=== PATIENT | female | born 1945 | race African-American/Black ===

== ENCOUNTER 2017-11-23 15:03 | Emergency (ER) | payer MEDICAID, MEDICARE, OTHER ==
[~2017-11-23] VITALS: Ht 160 cm; Wt 12.2 kg
[2017-11-23] VITALS (8 sets, daily range): BP systolic 134–200; BP diastolic 78–107
[~2017-11-23 15:03] MED LIST: BENADRYL ALLERG25 M1 PO; CLINDAMYCIN HC150 MG ORAL; ROBITUSSIN DM5 ML GT
--- NOTE | 2017-11-23 15:22 | Emergency Room Report ---
History of Present Illness General Chief Complaint: Chest Pain Source: Patient Present Illness HPI Patient is a 72-year-old female who presented after increased chest discomfort. The patient ports having pain onset last night. She reports having recently flown from [place] to [place]. She reports having sharp pain which did not radiate. She reports being a smoker. She denies any fever. She states she's had nonproductive cough.Patient denies any leg pain or swelling. Allergies: Coded Allergies: PENICILLINS (Verified Allergy, Intermediate, 02/21/12) Patient History Past Medical History: see triage record Last Menstrual Period: na Reviewed Nursing Documentation: PMH: Agreed; PSxH: Agreed Nursing Documentation-PMH Past Medical History: No History, Except For Hx Hypertension: Yes Hx Diabetes: Yes Review of Systems All Other Systems: negative except mentioned in HPI Physical Exam Vital Signs Date Time Temp Pulse Resp B/P (MAP) Pulse Ox O2 Delivery O2 Flow Rate FiO2 11/23/17 15:12 98.3 86 18 169/87 98 Room Air 98.2 Sp02 EP Interpretation: reviewed, normal General Appearance: normal inspection, well appearing, no apparent distress, alert, GCS 15, Chronically Ill Head: atraumatic ENT: normal ENT inspection, hearing grossly normal, normal voice Neck: normal inspection, full range of motion, supple, no bony tend Respiratory: normal inspection, normal breath sounds, no respiratory distress, no retraction, no wheezing Cardiovascular #1: regular rate, rhythm, no edema Gastrointestinal: normal inspection, normal bowel sounds, non tender, soft, no guarding, no hernia Genitourinary: no CVA tenderness Musculoskeletal: normal inspection, back normal, normal range of motion Neurologic: normal inspection, alert, oriented x3, responsive, oil burner mechanic III-XII nml as tested, speech normal Psychiatric: normal inspection, judgement/insight normal, mood/affect normal Skin: normal inspection, normal color, no rash Medical Decision Making Diagnostic Impression: Primary Impression: Chest pain Additional Impression: ACS (acute coronary syndrome) ER Course Patient presented for chest pain. Differential diagnosis included but was not limited to acute coronary syndrome, pulmonary embolism, pneumonia, aortic dissection, shingles, pneumothorax, aortic dissection, esophageal rupture, pericarditis. Because of complexity of patient's case laboratory testing and imaging studies were ordered.EKG was noted to have some evidence of myocardial ischemia. The patient is given aspirin as well as breathing treatment. The patient was noted to have some improvement her symptoms. Initial troponin was noted be negative. The patient was discussed with Dr. Boni Mcdermott for transfer to [facility] for further evaluation and treatment. Labs Test 11/23/17 15:44 11/23/17 18:25 White Blood Count 6.3 K/UL (4.8-10.8) Red Blood Count 4.05 M/UL (4.20-5.40) Hemoglobin 12.9 G/DL (12.0-16.0) Hematocrit 36.2 % (37.0-47.0) Mean Corpuscular Volume 89 FL (80-99) Mean Corpuscular Hemoglobin 32.0 PG (27.0-31.0) Mean Corpuscular Hemoglobin Concent 35.7 G/DL (32.0-36.0) Red Cell Distribution Width 10.6 % (11.6-14.8) Platelet Count 150 K/UL (150-450) Mean Platelet Volume 8.5 FL (6.5-10.1) Neutrophils (%) (Auto) 67.9 % (45.0-75.0) Lymphocytes (%) (Auto) 24.6 % (20.0-45.0) Monocytes (%) (Auto) 4.6 % (1.0-10.0) Eosinophils (%) (Auto) 2.2 % (0.0-3.0) Basophils (%) (Auto) 0.8 % (0.0-2.0) Prothrombin Time 10.5 SEC (9.30-11.50) Prothromb Time International Ratio 1.0 (0.9-1.1) Activated Partial Thromboplast Time 24 SEC (23-33) D-Dimer 1.19 mg/L FEU (0.00-0.49) Sodium Level 137 MMOL/L (136-145) Potassium Level 4.4 MMOL/L (3.5-5.1) Chloride Level 101 MMOL/L (98-107) Carbon Dioxide Level 24 MMOL/L (21-32) Anion Gap 12 mmol/L (5-15) Blood Urea Nitrogen 18 mg/dL (7-18) Creatinine 1.0 MG/DL (0.55-1.30) Estimat Glomerular Filtration Rate mL/min (>60) Glucose Level 267 MG/DL (74-106) Calcium Level 9.6 MG/DL (8.5-10.1) Total Bilirubin 1.0 MG/DL (0.2-1.0) Aspartate Amino Transf (AST/SGOT) 27 U/L (15-37) Alanine Aminotransferase (ALT/SGPT) 25 U/L (12-78) Alkaline Phosphatase 126 U/L (46-116) Total Creatine Kinase 184 U/L (26-308) Creatine Kinase MB 1.0 NG/ML (0.0-3.6) Creatine Kinase MB Relative Index 0.5 Troponin I 0.000 ng/mL (0.000-0.056) Pro-B-Type Natriuretic Peptide 593 pg/mL (0-125) Total Protein 7.6 G/DL (6.4-8.2) Albumin 3.5 G/DL (3.4-5.0) Globulin 4.1 g/dL Albumin/Globulin Ratio 0.9 (1.0-2.7) Urine Color Yellow Urine Appearance Clear Urine pH 5 (4.5-8.0) Urine Specific [place] 1.010 (1.005-1.035) Urine Protein Negative (NEGATIVE) Urine Glucose (UA) Negative (NEGATIVE) Urine Ketones Negative (NEGATIVE) Urine Occult Blood Negative (NEGATIVE) Urine Nitrite Negative (NEGATIVE) Urine Bilirubin Negative (NEGATIVE) Urine Urobilinogen Normal MG/DL (0.0-1.0) Urine Leukocyte Esterase Negative (NEGATIVE) Urine Opiates Screen Negative (NEGATIVE) Urine Barbiturates Screen Negative (NEGATIVE) Phencyclidine (PCP) Screen Negative (NEGATIVE) Urine Amphetamines Screen Negative (NEGATIVE) Urine Benzodiazepines Screen Positive (NEGATIVE) Urine Cocaine Screen Negative (NEGATIVE) Urine Marijuana (THC) Screen Positive (NEGATIVE) EKG Diagnostic Results Rate: normal Rhythm: NSR ST Segments: other - inferior and lateral st depression Last Vital Signs Date Time Temp Pulse Resp B/P (MAP) Pulse Ox O2 Delivery O2 Flow Rate FiO2 11/23/17 15:12 98.3 86 18 169/87 98 Room Air 98.2 Status: improved Disposition: XFER SHT-TRM HOSP Condition: Serious Latrell Chau MD Nov 23, 2017 15:22
[2017-11-23] MEDS ORDERED: Aspirin Baby 81mg ORAL ONE (15:30)
[2017-11-23] MEDS ORDERED: METOPROLOL SUC100 MG ORAL (15:58)
[2017-11-23] MEDS ORDERED: LISINOPRIL40 MG ORAL (16:00)
[2017-11-23] MEDS ORDERED: METFORMIN HCL1000 M1 ORAL (16:00)
[2017-11-23] MEDS ORDERED: COSOPT EYE DROP10 M1 OP (16:00)
[2017-11-23] MEDS ORDERED: HYDROCHLOROTHIA25 MG ORAL (16:00)
[2017-11-23] MEDS ORDERED: ATORVASTATIN CA20 MG ORAL (16:00)
--- NOTE | 2017-11-23 16:03 | Diagnostic Imaging Report ---
Indication: Dyspnea Comparison: None A single view chest radiograph was obtained. Findings: Cardiomediastinal appearance is within normal limits for age. Pulmonary vascularity is appropriate. The diaphragmatic contour is smooth and costophrenic angles are sharp. No pleural effusions are identified. The bones are unremarkable. Impression: No acute findings
[2017-11-23] MEDS ORDERED: Albuterol/Ipratropium 3ml neb HHN ONE (16:15)
[2017-11-23 16:21] LABS: BASOPHILS % (AUTO) 0.8 % (0.0-2.0); EOSINOPHILS % (AUTO) 2.2 % (0.0-3.0); HEMATOCRIT 36.2 % (37.0-47.0); HEMOGLOBIN 12.9 G/DL (12.0-16.0); LYMPHOCYTES % (AUTO) 24.6 % (20.0-45.0); MEAN CORPUSCULAR VOLUME 89 FL (80-99); MONOCYTES % (AUTO) 4.6 % (1.0-10.0); NEUTROPHILS % (AUTO) 67.9 % (45.0-75.0); PLATELET COUNT 150 K/UL (150-450); RED BLOOD COUNT 4.05 M/UL (4.20-5.40); RED CELL DISTRIBUTION WIDTH 10.6 % (11.6-14.8); WHITE BLOOD COUNT 6.3 K/UL (4.8-10.8)
[2017-11-23 16:36] LABS: ANION GAP 12 mmol/L (5-15); BLOOD UREA NITROGEN 18 mg/dL (7-18); CALCIUM 9.6 MG/DL (8.5-10.1); CARBON DIOXIDE 24 MMOL/L (21-32); CHLORIDE 101 MMOL/L (98-107); POTASSIUM 4.4 MMOL/L (3.5-5.1); SODIUM 137 MMOL/L (136-145)
[2017-11-23 16:52] LABS: ALANINE AMINOTRANSFERASE 25 U/L (12-78); ALBUMIN 3.5 G/DL (3.4-5.0); ALBUMIN/GLOBULIN RATIO 0.9 (1.0-2.7); ALKALINE PHOSPHATASE 126 U/L (46-116); ASPARTATE AMINO TRANSFERASE 27 U/L (15-37); CREATINE KINASE 184 U/L (26-308)
[2017-11-23] MEDS: Nitroglycerin Subl 0.4mg tab SL PRN ×3 (17:19→17:54)
[2017-11-23] MEDS ORDERED: COSOPT EYE DROP10 M1 BOTH EYES (17:37)
[2017-11-23] MEDS ORDERED: TRAVATAN Z5 ML BOTH EYES (17:37)
[2017-11-23] MEDS ORDERED: BRIMONIDINE TART5 ML BOTH EYES (17:37)
[2017-11-23] MEDS ORDERED: PEPTO-BISMOL262 M1 PO (17:40)
[2017-11-23 18:47] LABS: APPEARANCE,URINE CLEAR; BILIRUBIN, URINE NEGATIVE (NEGATIVE); GLUCOSE, URINE (UA) NEGATIVE (NEGATIVE); KETONES,URINE NEGATIVE (NEGATIVE); LEUKOCYTE ESTERASE ,URINE NEGATIVE (NEGATIVE); NITRITE,URINE NEGATIVE (NEGATIVE); PH,URINE 5 (4.5-8.0); PROTEIN,URINE NEGATIVE (NEGATIVE); UROBILINOGEN,URINE NORMAL MG/DL (0.0-1.0)
[2017-11-23 18:53] LABS: COLOR,URINE YELLOW
[2017-11-23] MEDS ORDERED: Enalaprilat 2.5mg/2ml Inj IV ONE (22:15)
== END 2017-11-23 23:11 | disposition short-term general hospital (02) ==
LOC: EMR 16:20
DX: I24.9 Acute ischemic heart disease, unspecified (principal); E11.9 Type 2 diabetes mellitus without complications; I10 Essential (primary) hypertension; Z88.0 Allergy status to penicillin
CPT/HCPCS: 36415; 71045; 80053; 80307; 81003; 82550; 82553; 83880; 84484; 85025; 85379; 85610; 85730; 93005; 94640; 94664; 96374; 96375; 99284; J1940; J7620

== ENCOUNTER 2018-08-11 21:38 | Emergency (ER) | payer MEDICAID, MEDICARE ==
[~2018-08-11] VITALS: Ht 160 cm; Wt 66.7 kg
[~2018-08-11 21:38] MED LIST changes: +ATORVASTATIN CA20 MG ORAL; +BRIMONIDINE TART5 ML BOTH EYES; +COSOPT EYE DROP10 M1 BOTH EYES; +COSOPT EYE DROP10 M1 OP; +HYDROCHLOROTHIA25 MG ORAL; +LISINOPRIL40 MG ORAL; +METFORMIN HCL1000 M1 ORAL; +METOPROLOL SUC100 MG ORAL; +PEPTO-BISMOL262 M1 PO; +TRAVATAN Z5 ML BOTH EYES
[2018-08-11 22:40] VITALS: BP 157/78
--- NOTE | 2018-08-11 22:40 | NUR ---
ED Nurse Note: pt walked in c/o high blood sugar, pt stated BS 380 and she took it 2 hours ago. pt bs 321 on triage. pt neuro assessment is pt is alert and oriented times 4, pupiles are round and reactive to light and accomodating, pt is able to walk with steady gait. pt cardiact assessment is within normal limits with S1 and S2 noted, pulse and sensation noted noted on all 4 extremiteies, pt vital signs are steady. pt resp assessment is within normal limits, pt breath sounds are clear on all 4 quadrants, no wheezing/ obstruction noted in airways, pt O2 sat is 98%. pt family memeber by bed side.
[2018-08-11 23:38] LABS: APPEARANCE,URINE CLEAR; BILIRUBIN, URINE NEGATIVE (NEGATIVE); COLOR,URINE PALE YELLOW; GLUCOSE, URINE (UA) 2+ (NEGATIVE); KETONES,URINE NEGATIVE (NEGATIVE); LEUKOCYTE ESTERASE ,URINE 2+ (NEGATIVE); NITRITE,URINE NEGATIVE (NEGATIVE); PH,URINE 5 (4.5-8.0); PROTEIN,URINE NEGATIVE (NEGATIVE); UROBILINOGEN,URINE NORMAL MG/DL (0.0-1.0)
[2018-08-11 23:40] LABS: BASOPHILS % (AUTO) 0.6 % (0.0-2.0); EOSINOPHILS % (AUTO) 5.4 % (0.0-3.0); HEMOGLOBIN 12.6 G/DL (12.0-16.0); LYMPHOCYTES % (AUTO) 38.1 % (20.0-45.0); MEAN CORPUSCULAR VOLUME 92 FL (80-99); NEUTROPHILS % (AUTO) 46.9 % (45.0-75.0); PLATELET COUNT 195 K/UL (150-450); RED BLOOD COUNT 3.91 M/UL (4.20-5.40); RED CELL DISTRIBUTION WIDTH 11.3 % (11.6-14.8); WHITE BLOOD COUNT 6.9 K/UL (4.8-10.8)
[2018-08-11 23:48] LABS: ANION GAP 9 mmol/L (5-15); BLOOD UREA NITROGEN 22 mg/dL (7-18); CALCIUM 9.6 MG/DL (8.5-10.1); CARBON DIOXIDE 27 MMOL/L (21-32); CHLORIDE 102 MMOL/L (98-107); CREATININE 1.3 MG/DL (0.55-1.30); POTASSIUM 4.6 MMOL/L (3.5-5.1); SODIUM 138 MMOL/L (136-145)
[2018-08-12] MEDS ORDERED: Insulin Human Regular 100units/ml 3ml IV ONE (00:15)
--- NOTE | 2018-08-12 00:41 | Emergency Room Report ---
History of Present Illness General Chief Complaint: Abnormal Labs Source: Patient Present Illness HPI This is a 73-year-old female with history of hypertension and diabetes but she presents with chief complaint of abnormal labs. She said her blood glucose been running in the 300 and home. started on a new medication and is not helping. She's continually taking her metformin. No fever chills but no nausea no vomiting. No urinary complaint. Denies any other complaint. Allergies: Coded Allergies: PENICILLINS (Verified Allergy, Intermediate, 02/21/12) Patient History Past Medical History: see triage record, old chart reviewed, DM, HTN Past Surgical History: other Pertinent Family History: none Social History: Denies: smoking Last Menstrual Period: 3 decades ago Now: No Immunizations: other Reviewed Nursing Documentation: PMH: Agreed; PSxH: Agreed Nursing Documentation-PMH Hx Hypertension: Yes Hx Diabetes: Yes Review of Systems Eye: Denies: eye pain, blurred vision ENT: Denies: ear pain, nose congestion, throat swelling Respiratory: Denies: cough, shortness of breath Cardiovascular: Denies: chest pain, palpitations Gastrointestinal: Denies: abdominal pain, diarrhea, nausea, vomiting Musculoskeletal: Denies: back pain, joint pain Skin: Denies: rash Neurological: Denies: headache, numbness Endocrine: Denies: increased thirst, increased urine Hematologic/Lymphatic: Denies: easy bruising All Other Systems: negative except mentioned in HPI Physical Exam Vital Signs Date Time Temp Pulse Resp B/P (MAP) Pulse Ox O2 Delivery O2 Flow Rate FiO2 08/11/18 22:22 98.1 87 14 157/78 97 Room Air vitals with high blood pressure Sp02 EP Interpretation: reviewed, normal General Appearance: well appearing, no apparent distress, alert Head: normocephalic, atraumatic Eyes: bilateral eye PERRL, bilateral eye EOMI ENT: hearing grossly normal, normal pharynx Neck: full range of motion, supple, no meningismus Respiratory: chest non-tender, lungs clear, normal breath sounds Cardiovascular #1: regular rate, rhythm, no murmur Gastrointestinal: normal bowel sounds, non tender, no mass, no organomegaly, no bruit, non-distended Musculoskeletal: back normal, gait/station normal, normal range of motion Psychiatric: mood/affect normal Skin: warm/dry Medical Decision Making Diagnostic Impression: Primary Impression: Hyperglycemia due to type 2 diabetes mellitus Qualified Codes: E11.65 - Type 2 diabetes mellitus with hyperglycemia ER Course Patient presents with hyperglycemia. No evidence of DKA or infection. We'll discharge home. Last Vital Signs Date Time Temp Pulse Resp B/P (MAP) Pulse Ox O2 Delivery O2 Flow Rate FiO2 08/11/18 22:40 98.1 75 14 157/78 97 Room Air Status: improved Disposition: HOME, SELF-CARE Condition: Stable Referrals: Kd Dougherty MD (PCP) Additional Instructions: Follow-up with your DrMaya in 7 days. Return if symptom worsen. Dutch Mendosa MD Aug 12, 2018 00:41
[2018-08-12 00:43] VITALS: BP 150/81
--- NOTE | 2018-08-12 00:43 | NUR ---
ER DISCHARGE NOTE: Patient is cleared to be discharged per ERMD, pt is aox4, on room air, with stable vital signs. pt was given dc and prescription instructions, pt was able to verbalize understanding, pt id band and iv site removed without complications. pt is able to ambulate with steady gait. pt took all belongings.
== END 2018-08-12 00:48 | disposition home or self-care (01) ==
LOC: EMR 23:20
DX: E11.65 Type 2 diabetes mellitus with hyperglycemia (principal); I10 Essential (primary) hypertension; Z79.84 Long term (current) use of oral hypoglycemic drugs; Z88.0 Allergy status to penicillin
CPT/HCPCS: 36415; 80048; 81001; 85025; 96374; 99284; J1815